=== PATIENT | female | born 1975 | race Caucasian/White ===

== ENCOUNTER → 2020-06-20 08:46 | Outpatient (CLI) | payer BC, SELFPAY ==
--- NOTE | ~2020-06-20 | MR_ITS ---
EXAMINATION: MR sacroiliac jts wo/w con DATE: 06/20/2020 09:50 INDICATION: Inflammatory arthritis. 4 months of sacroiliac joint pain. TECHNIQUE: Magnetic resonance imaging (MRI) of the sacroiliac joints was performed without and with 1 5 mL Multihance intravenous contrast. Sequences included axial T1-weighted FSE, axial T2-weighted FS FSE, coronal T1-weighted FSE, coronal T2-weighted FS FSE, sagittal PD-weighted FS FSE and post contra st axial and coronal T1-weighted FS FSE were also obtained. Axial and coronal planes were prescribed relative to the axis of the sacrum. COMPARISON: Radiographs dated 05/15/2019 FINDINGS: Bone alignment is normal. Bilateral sacroiliac joint spaces are appropriately preserved with minimal narrowing and tiny marginal osteophytes inferiorly consistent with very mild osteoarthritis. No joint effusions or increased fluid signal or enhancement within the joint space. The articular cortices ap pear normal and uniform. No erosions or subarticular sclerosis or reactive changes. No evident spondy losis the visualized lower lumbar spine with normal discs, minimal if any facet osteoarthritis and no appreciable central canal or neural foraminal stenosis. Sacral nerve roots and lumbar plexus appear normal with no abnormal masses or enhancement. Bladder and retroverted uterus are normal. A couple 5 mm nonenhancing T2 hyperintense nabothian cysts at the cervix. A couple T2 hyperintense nonenhancing cysts/follicles in the left ovary, the larger measuring 1.2 cm. The right ovary is normal. The visual ized portions of the bowels are unremarkable. Small amount of likely physiologic free fluid in the cu l-de-sac. No abnormally enhancing lesions identified. IMPRESSION: 1. Minimal sacroiliac osteoarthritis. No erosions or synovitis to suggest an inflammatory sacroiliiti s. Reviewed, dictated and finalized at location A. IMPRESSION: 1. Minimal sacroiliac osteoarthritis. No erosions or synovitis to suggest an in flammatory sacroiliitis.
[2020-06-20 09:12] LABS: Estimated Glomerular Filt Rate > 60
== END ==
PROVIDERS: PCP Physician Assistant
DX: M19.90 Unspecified osteoarthritis, unspecified site (principal); M25.60 Stiffness of unspecified joint, not elsewhere classified; M53.3 Sacrococcygeal disorders, not elsewhere classified; Z79.899 Other long term (current) drug therapy; M47.898 Other spondylosis, sacral and sacrococcygeal region
CPT/HCPCS: 72197; A9577

== ENCOUNTER → 2020-08-06 11:02 | Outpatient (CLI) | payer BC, SELFPAY ==
--- NOTE | ~2020-08-06 | MM_ITS ---
EXAMINATION: MM scrn barby implant BI w jimmy HISTORY: Screening mammogram TECHNIQUE: Craniocaudal and mediolateral oblique 3-D tomosynthesis images with implant displacement a nd synthetic 2-D images were generated. Craniocaudal and mediolateral oblique views of the breasts wi thout implant displacement were obtained using full field digital mammography. CAD analysis was submi tted and interpreted. COMPARISON: 02/20/2019. BREAST PARENCHYMAL COMPOSITION: There are scattered areas of fibroglandular density. FINDINGS: There is focal asymmetry in the upper aspect of the right breast on MLO implant displaced v iews. There is no mammographic evidence for malignancy in the left breast. There are subpectoral sili cone implants. IMPRESSION: 1. Right breast asymmetry on MLO implant displaced view. 2. Additional mammographic views and possible breast ultrasound are recommended. BI-RADS Category 0: Incomplete: Needs additional imaging evaluation. Reviewed, dictated and finalized at location A. IMPRESSION: 1. Right breast asymmetry on MLO implant displaced view. 2. Additional mammographic views and possible breast ultrasound are recommended . BI-RADS Category 0: Incomplete: Needs additional imaging evaluation.
== END ==
PROVIDERS: Visit Provider Nurse Practitioner Obstetrics & Gynecology
DX: Z12.31 Encounter for screening mammogram for malignant neoplasm of breast (principal); N64.89 Other specified disorders of breast
CPT/HCPCS: 77063; 77067

== ENCOUNTER → 2020-09-16 08:02 | Outpatient (CLI) | payer BC, SELFPAY ==
--- NOTE | ~2020-09-16 | MMUS_ITS ---
EXAMINATION: MM diag barby implant RT w jimmy, US breast RT complete HISTORY: Follow-up right breast asymmetry TECHNIQUE: Additional 3-D tomosynthesis images of the right breast were performed and synthetic 2-D i mages were generated. CAD analysis was submitted and interpreted. High resolution right breast ultras ound was performed. COMPARISON: 08/06/2020 BREAST PARENCHYMAL COMPOSITION: Breast composed of scattered areas of fibroglandular density. FINDINGS: MAMMOGRAPHIC FINDINGS: There are no suspicious masses, calcifications or architectural distortion in the right breast to sug gest malignancy. There is a right subpectoral silicone implants. The area of asymmetry compresses wit h spot views, consistent with superimposed fibroglandular tissue. ULTRASOUND: Complete right breast ultrasound: Normal heterogeneous echotexture without focal solid or cystic mass . IMPRESSION: 1. No evidence for malignancy in the right breast. 2. Routine yearly screening mammogram and regular clinical breast examination are recommended. BI-RADS Category 2: Benign finding(s). Reviewed, dictated and finalized at location A. STERED NURSE RENAL IMPRESSION: 1. No evidence for malignancy in the right breast. 2. Routine yearly screening mammogram and regular clinical breast examination a re recommended. BI-RADS Category 2: Benign finding(s).
== END ==
PROVIDERS: Visit Provider Nurse Practitioner Obstetrics & Gynecology
DX: R92.8 Other abnormal and inconclusive findings on diagnostic imaging of breast (principal)
CPT/HCPCS: 76641; 77061; 77065; G0279

== ENCOUNTER → 2020-10-15 12:20 | Outpatient (CLI) | payer BC, SELFPAY ==
--- NOTE | ~2020-10-15 | MR_ITS ---
EXAMINATION: MR hip LT w con DATE: 10/15/2020 14:05 INDICATION: Left hip pain. TECHNIQUE: Magnetic resonance imaging (MRI) of the left hip was performed without intravenous contras t after intra-articular injection of contrast (MR arthrogram). Sequences included axial T1-weighted F SE and axial and coronal T2-weighted FS FSE of the pelvis and axial and coronal T2-weighted FS FSE an d T1-weighted FS FSE, sagittal T2-weighted FS FSE, and radial T1-weighted SPGR of the hip. COMPARISON: Pelvis and hip radiographs 05/15/2019 FINDINGS: Bones/cartilage: Bone alignment is normal. No fracture. The femoral head/neck morphologies are normal. Bone marrow sig nal intensity is normal. Left hip joint demonstrates normal cartilage. Labrum: The left acetabular labrum is normal. Fluid: The left hip is well distended by contrast. No trochanteric bursitis. There is trace pelvic ascites, likely physiologic. Soft tissues: There is mild tendinopathy of the hamstring origins bilaterally. The gluteus minimus and gluteus medi us tendons are normal bilaterally. The iliopsoas tendons are normal. IMPRESSION: 1. No etiology for the patient's symptoms. Reviewed, dictated and finalized at location A. KLESS TROLLEY DRIVER
--- NOTE | ~2020-10-15 | XR_ITS ---
EXAMINATION: XR fl inj hip LT for MR/CT EXAM DATE: 10/15/2020 13:30 INDICATION: left hip pain .. TECHNIQUE: A time-out was performed to verify the patient's name, date of , and procedure to b e performed. The procedure including the risks, benefits and alternatives were discussed with the pat ient. Risks discussed included bleeding and infection. The patient understood the risks and agreed to proceed. The skin overlying the left hip joint was prepped and draped in usual sterile fashion. Ane sthetic was administered with 2 milliliters 1% lidocaine subcutaneously. A 22 G needle was advanced under fluoroscopic guidance into the joint. A total of 8 mL of 1:200 of 529 mg/mL Multihance, 1:4 li docaine, and 1:4 Omnipaque 240 was instilled. The needle was removed and the entry site was cleaned and dressed. There were no immediate complications. The DAP for this procedure was 0.1 Gycm2. The procedure was performed on 10/15/2020. FINDINGS: Real-time fluoroscopy demonstrates the needle and contrast in the left hip joint. IMPRESSION: Successful left hip joint injection. Reviewed, dictated and finalized at location B. ING TOWER OPERATOR
== END ==
PROVIDERS: PCP Physician Assistant; Visit Provider Internal Medicine
DX: M25.552 Pain in left hip (principal)
CPT/HCPCS: 20610; 73722; 77002; A9577; Q9966

== ENCOUNTER → 2021-04-04 07:58 | Outpatient (CLI) | payer BC, SELFPAY ==
--- NOTE | ~2021-04-04 | MR_ITS ---
EXAMINATION: MR lumbar spine wo con EXAM DATE: 04/04/2021 08:31 INDICATION: Radiculopathy, lumbar region. Low back pain, left-sided. TECHNIQUE: Multi-sequential, multiplanar MR images of the lumbar spine were obtained without contrast . Sagittal T1, T2, T2 fat saturation images. Axial T2 weighted images. There is no prior study for comparison. FINDINGS: The conus medullaris terminates at the L1 level and has normal signal intensity and morphol ogy. There is mild upper thoracic dextroscoliosis. Mild loss of the L1-2 disc height. The vertebral body and disc heights are otherwise well maintained. There are no suspicious marrow signal abnormalit ies. Paraspinal soft tissue is unremarkable. Incidental note made of 5 cm right adnexal fluid signal intensity region incompletely imaged, likely right ovarian origin. Most likely dominant ovarian follicle given lack of complexity. Level by level evaluation: T12-L1: Disc does not extend beyond the endplate margin. Facet arthropathy: None. Neural foraminal stenosis: No stenosis. Central canal stenosis: No stenosis. L1-L2: Disc does not extend beyond the endplate margin. Facet arthropathy: Mild. Neural foraminal stenosis: No stenosis. Central canal stenosis: No stenosis. L2-L3: Disc does not extend beyond the endplate margin. Facet arthropathy: None. Neural foraminal stenosis: No stenosis. Central canal stenosis: No stenosis. L3-L4: Disc does not extend beyond the endplate margin. Facet arthropathy: Minimal. Neural foraminal stenosis: No stenosis. Central canal stenosis: No stenosis. L4-L5: There is a mild diffuse disc bulge. Facet arthropathy: Mild. Neural foraminal stenosis: No stenosis. Central canal stenosis: No stenosis. L5-S1: Disc does not extend beyond the endplate margin. Facet arthropathy: Minimal. Neural foraminal stenosis: No stenosis. Central canal stenosis: No stenosis. IMPRESSION: 1. Mild thoracolumbar dextroscoliosis. 2. Mild lumbar spondylosis. Reviewed, dictated and finalized at location A.
== END ==
PROVIDERS: PCP Physician Assistant; Visit Provider Anesthesiology
DX: M54.16 Radiculopathy, lumbar region (principal); M41.85 Other forms of scoliosis, thoracolumbar region; M47.816 Spondylosis without myelopathy or radiculopathy, lumbar region
CPT/HCPCS: 72148

== ENCOUNTER 2021-04-18 08:47 | Outpatient (CLI) | payer BC, SELFPAY ==
--- NOTE | 2021-04-18 | ECHO_ITS ---
Patient Info Name: Lizett Rosas Age: 45 years : 1975 Gender: Female Ht: 64 in Wt: 140 lbs BSA: 1.70 m2 HR: 72 bpm BP: 134 / 89 mmHg Heart Rhythm: Sinus Rhythm Technical Quality: Good Exam Date: 04/18/2021 9:18 AM Exam Location: [facility] Patient Status: Outpatient Admit Date: 04/18/2021 Staff Ordering Physician: HemanthSantos PA-C Cell Cleaner: Deyanira Groves RDCS Attending Provider: Santos White PA-C Exam Type: CA echo doppler color flow Study Info Indications R01.1 - Cardiac murmur, unspecified Complete two-dimensional, color flow and Doppler transthoracic echocardiogram is performed. Summary 1. Complete two-dimensional, color flow and Doppler transthoracic echocardiogram is performed. 2. Trivial Mitral and Tricuspid regurgitation. 3. Otherwise normal exam. Left Ventricle Left ventricular chamber dimension is normal. Left ventricular systolic function is normal, estimated at 55-60%. The left ventricular diastolic function is normal. Right Ventricle Right ventricular chamber dimension is normal. Left Atria Left atrial chamber dimension is normal. Right Atria Right atrial chamber dimension is normal. Aortic Valve The aortic valve is normal. Pulmonic Valve The pulmonic valve is normal. Mitral Valve The mitral valve has normal leaflets. There is trace mitral valve regurgitation. Tricuspid Valve The tricuspid valve leaflets are normal. There is trace tricuspid valve regurgitation. Pericardium/Pleural The pericardium appears normal. Aorta The aortic root size at the sinus of Valsalva is normal. Left Ventricular Outflow Tract Name Value Normal LVOT 2D LVOT Diameter 2.0 cm LVOT Doppler LVOT Peak Gradient 4 mmHg LVOT Mean Gradient 3 mmHg LVOT VTI 23 cm LVOT VTI/AV VTI Ratio 0.9 LVOT Stroke Volume 73 ml LVOT CO 16.1 l/min LVOT CI 9.5 l/min/m2 Pulmonic Valve Name Value Normal PV Doppler PV Peak Gradient 8 mmHg Mitral Valve Name Value Normal MV Doppler MV Decel [place] 499 cm/s2 MV PHT 40 ms MV Area (PHT) 5.6 cm2 4.0-5.0 MV Diastolic Function MV E Peak Velocity 68 cm/s MV A Peak Velocity 61 cm/s
== END 2021-04-18 08:48 | disposition home or self-care (01) ==
PROVIDERS: PCP Physician Assistant; Visit Provider Physician Assistant
DX: R01.1 Cardiac murmur, unspecified (principal)
CPT/HCPCS: 93306

== ENCOUNTER 2021-07-25 13:02 | Outpatient (CLI) | payer BC, SELFPAY | END 2021-07-25 13:03 | disposition home or self-care (01) | LOC: ANHSURGERY 13:09 | PROVIDERS: PCP Physician Assistant; Visit Provider Obstetrics & Gynecology | DX: Z01.818 Encounter for other preprocedural examination (principal); N92.0 Excessive and frequent menstruation with regular cycle | CPT/HCPCS: 36415; 86850; 86900; 86901 ==

== ENCOUNTER 2021-07-30 02:12 | Day surgery (SDC) | payer BC, SELFPAY ==
[2021-07-22 11:51] VITALS: BMI 24.0
[2021-07-30] VITALS (11 sets, daily range): BP systolic 89–113; BP diastolic 58–80; PULSE 71–92; RESP 14–18; TEMP 36.2–37.1; O2SAT 95–100; BMI 24.3
--- NOTE | 2021-07-30 07:00 | P.PNAN_ITS ---
Anes - Initial Pre Proc Eval Procedure: Operation Date: 07/30/21 07:30 Proposed Procedures p Total Laparoscopic Hysterectomy with Bilateral Salpingo-Oophorectomy - Eric Su MD Date/Time: 07/30/21 07:00 Surgeon: Eric Su MD Pre Op Diagnosis: menorrhaghia Patient Data Age: 45 Gender: F Height: 1.63 m Weight: 64.4 kg Allergies Allergy/AdvReac Type Severity Reaction Status Date / Time nitrofurantoin Allergy Severe Anaphylaxis Verified 07/30/21 06:32 [From Macrobid] Home Medications Medication Instructions Recorded Confirmed Type cetirizine [Zyrtec] 10 mg PO HS 07/22/21 07/30/21 History diclofenac epolamine [Flector] 1 patch TOPICAL BID 07/22/21 07/30/21 History galcanezumab-gnlm [Emgality Pen] 120 mg SUBCUT MONTHLY 07/22/21 07/30/21 History hydroxychloroquine 200 mg PO BID 07/22/21 07/30/21 History lamotrigine 100 mg PO DAILY 07/22/21 07/30/21 History lisdexamfetamine [Vyvanse] 30 mg PO DAILY 07/22/21 07/30/21 History montelukast 10 mg PO DAILY 07/22/21 07/30/21 History sumatriptan succinate 100 mg PO ONCE PRN 07/22/21 07/30/21 History ubrogepant [Ubrelvy] 50 mg PO ONCE PRN 07/22/21 07/30/21 History vortioxetine [Trintellix] 10 mg PO DAILY 07/22/21 07/30/21 History Patient hx anesthesia problems: none Family hx anesthesia problems: none Results Review: All pre-operative results and documents have been reviewed as part of the pre-operative evaluation. [facility] Past Medical History Medical History (Updated 07/30/21 @ 07:01 by Adam Nunn MD) ADHD Anxiety Asthma Psoriatic arthritis Surgical History Surgical History (Updated 07/30/21 @ 07:01 by Adam Nunn MD) H/O cosmetic surgery Social History Social History Smoking packs per day: 1 Smoking cigarettes per day: 20.0 Years smoked: 15 Smoking pack-years: 15.00 Smoking status: Former smoker Smoking end date: 10/25/10 Alcohol intake: current Alcohol use details: VERY RARE Substance use: current Substance use type: marijuana Other substance usage details: EDIBLES Last use: 07/19/21 Living arrangements: with family Spiritual care concerns: No Anes - Eval Final PreProcedure Day of Procedure 07/30/21 07:00 Patient weight: normal Heart: regular rate and rhythm Lungs: decreased breath sounds and wheezes Airway: Mallampati scale class II, special considerations poor opening and other (h/o difficult intubation) Neurological: alert and oriented Last oral intake: >/= 8 hours ASA classification: III Emergent: no Anesthetic plan: proceed Anesthesia type and monitoring: general ETT and standard monitoring Results Review: All pre-operative results and documents have been reviewed as part of the pre-operative evaluation. Informed Consent: The patient's anesthetic plan and its attendant risks and benefits were discussed with the patient/family/POA. Questions were solicited a nd answers provided to the satisfaction of the patient/family/POA.
--- NOTE | 2021-07-30 07:10 | WPDHPUPDATE1 ---
History and Physical Update Update Date/Time: 07/30/21 07:10 History and Physical has been reviewed, including an updated exam of the patient. There are NO changes in the patient's condition. Risks, benefits, and alternatives have been discussed and questions answered. Patient agrees to proceed with procedure.
[2021-07-30] MEDS: ACETAMINOPHEN 500 MG TABLET 1000 MG PO (07:15)
[2021-07-30] MEDS: KETOROLAC 15 MG/ML VIAL (*BKC) IV PUSH (07:17)
[2021-07-30] MEDS: LACTATED RINGERS 1,000 ML 30 ML IV CONT ×2 (07:17→08:55)
[2021-07-30] MEDS: ceFAZolin 2 GM/D5W 50 ML 2 GM/50 ML BAG IVPB (07:28)
--- NOTE | 2021-07-30 09:09 | W.PM.PROC2 ---
Procedure Note - Detailed Date of Procedure 07/30/21 Pre-op Diagnosis menorrhaghia, dysmenorrhea, ovarian cysts Post-op Diagnosis same Procedure Performed Total laparoscopic hysterectomy and bilateral salpingo-oophorectomy. Surgeon Eric uS MD Anesthesia general Indications Severe menometrorrhagia, dysmenorrhea, ovarian cysts Findings Moderate sized uterus, cystic left ovary and normal-appearing tubes. Description of Procedure This patient was taken to the operating room. She was prepped and draped in the dorsal lithotomy position after induction of general anesthesia. The uterine manipulator and Lane cup were placed. This was done with a speculum and tenaculum. The speculum was placed. The cervix was grasped with a tenaculum. The stay sutures were placed at 3 and 9:00 a.m.. The stay sutures of 0 Vicryl were brought through the appropriately sized Lane cup. The tip of the WILLY manipulator was placed in the intrauterine cavity. The cup was slid into place around the cervix and into the fornices. It was locked into place. The sutures were then wrapped around the handle and tied under tension. A 5 mm skin incision was made in the left upper quadrant the abdomen. A 5 mm trocar was inserted into the intrauterine cavity under direct visualization of the scope. Pneumoperitoneum was achieved. A left lower quadrant 11 mm incision was made with scalpel. An 11 mm trocar was inserted into the anterior abdominal cavity under direct visualization the scope. A 5 mm infraumbilical incision was made with a scalpel and a 5 mm trocar was inserted the intra-abdominal cavity under direct visualization of the scope. Bilateral ureteral lysis was performed. This was done from the pelvic brim down to the uterine artery. This was done with careful dissection using sharp and blunt dissection. The infundibulopelvic ligaments were isolated after identification of the ureters bilaterally. These infundibulopelvic ligaments were cauterized and transected with LigaSure cautery. The para ovarian tissue was cauterized and transected with LigaSure cautery bilaterally. Moving around the ovary into the broad ligament the tissue was cauterized transected with LigaSure cautery. The round ligaments were cauterized transected with LigaSure cautery this was all done in a bilateral fashion. In a stepwise fashion along the lateral aspects of the uterus the round ligament and broad ligaments were cauterized transected down to the level of the uterine arteries. A bladder flap was created in the bladder was moved distally to the end of the cervix and over the Lane cup. The bilateral uterine arteries were cauterized and transected. Colpotomy was then performed. In a circumferential fashion the vagina was transected using unipolar cautery. The incision was made down on the Lane cup. The uterus, cervix, fallopian tubes and ovaries were taken out through the vagina. A pneumo occluder was placed in the vagina. The vaginal cuff was closed with a 0 V lock suture in a running fashion. The pelvis was irrigated with copious amounts antibiotic irrigation. The ureters were again examined and found to be intact and flowing freely under the uterine arteries into the bladder. The bladder was intact. It was examined directly. The vagina was irrigated with Betadine solution after removal of the Pneumo occluder. The patient was taken to recovery room. She was stable condition. Sponge lap and needle counts were correct x2. Estimated Blood Loss 100 Drains Yes Packing No Pathology yes Complications No immediate complications Condition stable Disposition floor
[2021-07-30] MEDS: fentaNYL CITRATE INJ (*CRX) 100 MCG/2 ML VIAL 25 MCG IV PUSH ×6 (09:12→09:56)
--- NOTE | 2021-07-30 10:10 | PC.NURSE ---
PT arrived on unit via bed unaccompanied alert and awake and taken to room 289. PT oriented to room and surrounding area. PT introductions made and plan of care discussed per post op systems mechanic surgery, pain management, daily care activities. PT received such instructions and education this shift via one to one discussion and demonstration. PT sole recipient and no barriers to learning identified. PT verbalized understanding of such care.
[2021-07-30] MEDS: DEXTROSE 5%/0.45% SOD CHL 1,000 ML 125 ML (10:15)
[2021-07-30] MEDS: KETOROLAC 30 MG/ML VIAL (*BKC) IV PUSH ×2 (12:04→18:26)
[2021-07-30] MEDS: DOCUSATE SODIUM 100 MG CAPSULE (12:04)
[2021-07-30] MEDS: HYDROcodone/acetaminophen (*CRX) 10-325 MG TABLET 1 TAB PO ×4 (12:05→21:43)
[2021-07-30] MEDS: ESTRADIOL 7 DAY 0.1 MG PATCH TRANSDERM (15:49)
--- NOTE | 2021-07-30 21:13 | PHAR ---
Home medications in a bag seen in pharmacy and returned to OB2 nursing unit. [id number] white oblong tablet=hydroxychloroquine 200mg x2 tablets. zc80 white round tab= lamotrigine 100mg x1 tablet. TL 10 yellowish tear shape= Trintellix 10mg tablet x2. s489/30mg orange and white = Vyvanse 30mg x1 capsule. I 114 square tablet unsure of identification. spoke with RN ob2.
[2021-07-30] MEDS: LORATADINE 10 MG TABLET PO (21:43)
[2021-07-30] MEDS: HYDROXYCHLOROQUINE SULFATE 200 MG TABLET PO (21:44)
[2021-07-31 00:15] VITALS: BP 97/64; PULSE 78; RESP 18; TEMP 36.4; O2SAT 97
[2021-07-31] MEDS: KETOROLAC 30 MG/ML VIAL (*BKC) IV PUSH (00:21)
[2021-07-31] MEDS: HYDROcodone/acetaminophen (*CRX) 10-325 MG TABLET 1 TAB PO ×3 (00:38→08:34)
[2021-07-31 05:00] VITALS: BP 90/53; PULSE 73; RESP 18; TEMP 36.7; O2SAT 99
--- NOTE | 2021-07-31 07:20 | PM.GYNPNOP ---
PUBLIC HEALTH SPECIALIST - A/P Postoperative Procedures: Procedures Operation Date: 07/30/21 07:30 Actual Procedure Side Surgeon p Total Laparoscopic Hysterectomy with Bilateral Salpingo-Oophorectomy Bilateral Eric Su MD Postoperative day: 1 Postoperative status: doing well Postoperative plan: see orders Time Spent With Patient Time: Total time spent is greater than 50% in coordination of care (as documented) at patient's floor/unit and/or counseling patient: Time with patient: less than 15 minutes PUBLIC HEALTH SPECIALIST- PN:Subj Post-Op Subjective Date/time seen: 07/31/21 07:20 Subjective: patient reports feeling better, patient has no complaints and pain is well controlled Exam Const: General: healthy appearing, comfortable and no acute distress Resp: Auscultation: clear to auscultation bilaterally, no rales, no rhonchi and no wheezes Cardio: Rate: regular rate Heart sounds: no click, no murmurs and no rubs GI: Inspection: non-distended Auscultation: normal bowel sounds Extrem: General: normal to inspection, no pedal edema and no calf tenderness PUBLIC HEALTH SPECIALIST - PN: Obj Data Vital Signs Vital Signs: Vital Signs - 24 hr 07/30/21 07:21 07/30/21 08:55 07/30/21 09:10 Temperature 97.5 F L 97.2 F L Pulse Rate 92 71 79 Respiratory Rate 16 14 14 Blood Pressure 113/80 89/58 L 109/68 Pulse Oximetry 100 100 100 07/30/21 09:25 07/30/21 09:40 07/30/21 09:55 Temperature Pulse Rate 76 76 80 Respiratory Rate 14 14 14 Blood Pressure 105/66 102/64 105/69 Pulse Oximetry 100 100 100 07/30/21 10:10 07/30/21 10:15 07/30/21 12:30 Temperature 97.3 F L 97.6 F Pulse Rate 76 78 78 Respiratory Rate 16 16 16 Blood Pressure 106/70 108/71 Pulse Oximetry 100 95 95 07/30/21 16:30 07/30/21 20:00 07/31/21 00:15 Temperature 98.8 F 98.0 F 97.6 F Pulse Rate 72 81 78 Respiratory Rate 18 18 18 Blood Pressure 108/68 110/74 97/64 L Pulse Oximetry 100 98 97 07/31/21 05:00 Temperature 98.0 F Pulse Rate 73 Respiratory Rate 18 Blood Pressure 90/53 L Pulse Oximetry 99 Intake/Output Intake/Output: Intake & Output 07/28/21 07/29/21 07/30/21 07/31/21 23:59 23:59 23:59 23:59 Intake Total 1750 Output Total 735 Balance 1015 Meds/Results Medications: Active Medications Generic Name Dose Route Start Last Admin Trade Name Freq PRN Reason Stop Dose Admin Hydrocodone Bitart/Acetaminophen 1 tab 07/30/21 10:04 Hydrocodone/Acetaminophen (*Crx) 5-325 Mg Tablet PO Q3H PRN Pain Rated 5 or Less Hydrocodone Bitart/Acetaminophen 1 tab 07/30/21 10:04 07/31/21 05:20 Hydrocodone/Acetaminophen (*Crx) 10-325 Mg Tablet PO 1 tab Q3H PRN Administration Pain Rated 6 or Greater Estradiol 0.1 mg 07/30/21 10:25 07/30/21 15:49 Estradiol 7 Day 0.1 Mg Patch TRANSDERM 0.1 mg We@0900 [facility] Administration Home Med 1 each 07/31/21 09:00 Vortioxetine [Trintellix] 10 Mg Tablet BY MOUTH 08/30/21 08:59 DAILY [facility] Home Med 1 each 07/31/21 09:00 Lisdexamfetamine [Vyvanse] 30 Mg Capsule *Use Home Supply BY MOUTH 08/30/21 08:59 DAILY [facility] Hydroxychloroquine Sulfate 200 mg 07/30/21 17:00 07/30/21 21:44 Hydroxychloroquine Sulfate 200 Mg Tablet PO 200 mg BID [facility] Administration Ibuprofen 600 mg 07/30/21 10:04 Ibuprofen 600 Mg Tablet PO Q6H PRN Cramping Ketorolac Tromethamine 30 mg 07/30/21 10:04 07/31/21 00:21 Ketorolac 30 Mg/Ml Vial (*Bkc) IV PUSH 08/04/21 10:03 30 mg Q6H PRN Administration Pain Rated 4-6 Lamotrigine 100 mg 07/31/21 09:00 Lamotrigine 100 Mg Tablet PO DAILY [facility] Loratadine 10 mg 07/30/21 21:00 07/30/21 21:43 Loratadine 10 Mg Tablet PO 10 mg HS [facility] Administration Miscellaneous Information 1 each 07/30/21 13:24 Pharmacist Communication Order XX 07/30/21 13:25 ONCE ONE Miscellaneous Information 1 each 07/30/21 00:01 07/31/21 00:19 If Patient Is Going To Take Any Home Med They Need Sent To Pharmacy For Identific
[2021-07-31 08:10] VITALS: BP 106/70; PULSE 74; RESP 16; TEMP 36.6; O2SAT 100
[2021-07-31] MEDS: SIMETHICONE 80 MG TAB.CHEW (08:34)
[2021-07-31] MEDS: DOCUSATE SODIUM 100 MG CAPSULE (08:34)
[2021-07-31] MEDS: IBUPROFEN 600 MG TABLET PO (08:35)
--- NOTE | 2021-07-31 09:10 | PC.NURSE ---
PT received discharge instructions per protocol and verbalized understanding of such care.
--- NOTE | 2021-07-31 09:12 | WPDANESPN ---
Anes - Prog Note Post-Op Date/Time: 07/31/21 09:12 Cardiovascular status: normal Respiratory status: normal Airway patency: baseline Mental status: baseline Post-Op hydration status: normal Vital Signs: Last Vital Signs Temp 36.7 C 07/31/21 05:00 Pulse 73 07/31/21 05:00 Resp 18 07/31/21 05:00 BP 90/53 L 07/31/21 05:00 Pulse Ox 99 07/31/21 05:00 Pain Score (VAS): 0 I/O: Intake & Output 07/30/21 07/31/21 07/31/21 23:59 07:59 15:59 Intake Total 600 Output Total 700 Balance -100 Post-procedural complaints: none Patient Feedback: Patient satisfied with anesthetic care.
--- NOTE | 2021-07-31 09:25 | PC.NURSE ---
PT discharged to home ambulatory accompanied by spouse and taken to waiting car. Follow up appts confirmed
== END 2021-07-31 09:25 | disposition home or self-care (01) ==
LOC: ANHSURGERY 06:19 → ANHOB2 10:18
PROVIDERS: PCP Physician Assistant; Visit Provider Obstetrics & Gynecology
PROC: 0UT9FZZ Resection of Uterus, Via Natural or Artificial Opening With Percutaneous Endoscopic Assistance (ICD-10-PCS; CPT 58571; principal; 2021-07-30 07:30)
DX: N92.0 Excessive and frequent menstruation with regular cycle (principal); N94.6 Dysmenorrhea, unspecified; N80.0 Endometriosis of uterus; N83.02 Follicular cyst of left ovary; J45.909 Unspecified asthma, uncomplicated; L40.50 Arthropathic psoriasis, unspecified; F90.9 Attention-deficit hyperactivity disorder, unspecified type; Z87.891 Personal history of nicotine dependence; F12.90 Cannabis use, unspecified, uncomplicated
CPT/HCPCS: 58571; 88307; 99199; A9270; J0690; J1100; J1885; J2250; J2405; J2704; J2710; J3010; J7030; J7120

== ENCOUNTER 2022-02-16 12:31 | Outpatient (CLI) | payer BC, SELFPAY ==
--- NOTE | ~2022-02-16 | MR_ITS ---
EXAMINATION: MR lumbar spine wo con DATE: 02/16/2022 13:33 INDICATION: Lumbar radiculopathy. TECHNIQUE: Magnetic resonance imaging (MRI) of the lumbar spine was performed without intravenous con trast. Sequences included sagittal T2-weighted FSE, sagittal T2-weighted FS FSE, sagittal T1-weighted FSE, and axial T2-weighted FSE. COMPARISON: Lumbar spine MRI 04/04/2021 FINDINGS: There is 11 degrees dextroscoliosis of thoracolumbar spine. Vertebral body heights are norm al. There is mildly decreased disc height at L1-L2, L3-L4, and L4-L5. The distal spinal cord signal i ntensity is normal. The conus medullaris is at L1. The following disc levels are specifically discuss ed: L1-L2: There is a left central protrusion. There is mild bilateral facet joint osteoarthritis. There is no neural foraminal stenosis. There is mild central canal stenosis. L2-L3: The disc does not extend beyond the endplate margin. There is mild bilateral facet joint osteo arthritis. There is no neural foraminal stenosis. There is no central canal stenosis. L3-L4: The disc is mildly bulging. There is mild bilateral facet joint osteoarthritis. There is mild bilateral neural foraminal stenosis. There is mild central canal stenosis. L4-L5: The disc is bulging and has an annular fissure. There is mild bilateral facet joint osteoarthr itis. There is mild bilateral neural foraminal stenosis. There is mild central canal stenosis. L5-S1: The disc does not extend beyond the endplate margin. There is mild bilateral facet joint osteo arthritis. There is no neural foraminal stenosis. There is no central canal stenosis. IMPRESSION: 1. Mild lumbar spondylosis, slightly worsened from 04/04/2021. 2. Thoracolumbar dextroscoliosis. Reviewed, dictated and finalized at location A.
== END 2022-02-16 12:32 | disposition home or self-care (01) ==
PROVIDERS: PCP Physician Assistant; Visit Provider Anesthesiology
DX: M54.16 Radiculopathy, lumbar region (principal); M41.85 Other forms of scoliosis, thoracolumbar region; M43.06 Spondylolysis, lumbar region
CPT/HCPCS: 72148

== ENCOUNTER → 2022-04-24 08:00 | Outpatient (CLI) | payer BC, SELFPAY ==
--- NOTE | ~2022-04-24 | MM_ITS ---
EXAMINATION: MM diag barby implant BI w jimmy HISTORY: History of fibrocystic disease. TECHNIQUE: Additional 3-D tomosynthesis images of the breasts were performed and synthetic 2-D images were generated. CAD analysis was submitted and interpreted. COMPARISON: Comparison to multiple prior studies sequentially, with oldest reviewed study dated 02/20. BREAST PARENCHYMAL COMPOSITION: Breast composed of scattered areas of fibroglandular density FINDINGS: There are no suspicious masses, calcifications or architectural distortion in either breast to suggest malignancy. The breasts are stable. There are bilateral subpectoral silicone implants. IMPRESSION: 1. No evidence for malignancy in either breast. 2. Routine yearly screening mammogram and regular clinical breast examination are recommended. BI-RADS Category 1: Negative Reviewed, dictated and finalized at location A. IMPRESSION: 1. No evidence for malignancy in either breast. 2. Routine yearly screening mammogram and regular clinical breast examination a re recommended. BI-RADS Category 1: Negative
== END ==
PROVIDERS: PCP Physician Assistant; Visit Provider Obstetrics & Gynecology
DX: R92.8 Other abnormal and inconclusive findings on diagnostic imaging of breast (principal)
CPT/HCPCS: 77062; 77066; G0279

== ENCOUNTER 2022-08-05 08:27 | Outpatient (CLI) | payer BC, SELFPAY ==
--- NOTE | ~2022-08-05 | US_ITS ---
EXAMINATION: US venous doppler [facility] DATE: 08/05/2022 09:02 INDICATION: Left lower limb edema and pain. TECHNIQUE: Grayscale ultrasound images without and with compression and Doppler ultrasound images of the left lower extremity veins were obtained. COMPARISON: None. FINDINGS: The visualized portions of left common femoral vein, profunda (deep) femoral vein, femoral vein, popl iteal vein, peroneal veins, posterior tibial veins, and greater saphenous vein outflow are patent. IMPRESSION: 1. No deep venous thrombosis. Reviewed, dictated and finalized at location A.
== END 2022-08-05 08:28 | disposition home or self-care (01) ==
PROVIDERS: PCP Physician Assistant; Visit Provider Physician Assistant
DX: R29.898 Other symptoms and signs involving the musculoskeletal system (principal)
CPT/HCPCS: 93971

== ENCOUNTER → 2023-08-10 09:53 | Outpatient (CLI) | payer OTHER, SELFPAY ==
--- NOTE | ~2023-08-10 | MM_ITS ---
EXAMINATION: MM diag barby implant BI w jimmy HISTORY: Previous breast asymmetries. TECHNIQUE: Additional 3-D tomosynthesis images of the breasts were performed and synthetic 2-D images were generated. CAD analysis was submitted and interpreted. COMPARISON: Comparison to multiple prior studies sequentially, with oldest reviewed study dated 02/10. BREAST PARENCHYMAL COMPOSITION: The breasts are heterogeneously dense, which may obscure small masses FINDINGS: There are bilateral subpectoral silicone implants. There are no suspicious masses, calcific ations or architectural distortion in either breast to suggest malignancy. The breasts are stable. IMPRESSION: 1. No mammographic evidence for malignancy in either breast. 2. Routine yearly screening mammogram and regular clinical breast examination are recommended. BI-RADS Category 1: Negative Reviewed, dictated and finalized at location A. IMPRESSION: 1. No mammographic evidence for malignancy in either breast. 2. Routine yearly screening mammogram and regular clinical breast examination a re recommended. BI-RADS Category 1: Negative
== END ==
PROVIDERS: PCP Physician Assistant; Visit Provider Nurse Practitioner Obstetrics & Gynecology
DX: Z12.31 Encounter for screening mammogram for malignant neoplasm of breast (principal); R92.8 Other abnormal and inconclusive findings on diagnostic imaging of breast
CPT/HCPCS: 77062; 77066; G0279